=== PATIENT | female | born 1945 | race Caucasian/White ===

== ENCOUNTER → 2018-07-19 12:31 | Outpatient (CLI) | payer BC ==
[~2018-07-19 12:31] MED LIST: ASPIRIN EC81 M1 PO; CO Q-1030 MG PO; FLAGYL500 MG PO; LIVALO2 MG PO; NEOMYCIN SULFA500 MG PO; ZEBETA5 MG; ZEBETA5 MG PO; ZETIA10 MG PO
== END | disposition home or self-care (01) ==
LOC: D.CT 12:31
DX: R10.9 Unspecified abdominal pain (principal)

== ENCOUNTER → 2019-01-18 09:31 | Outpatient (CLI) | payer BC ==
[2015-02-13 09:14] VITALS: BMI 28.3
[2019-01-18 10:06] LABS: ALBUMIN 3.9 g/dL (3.4-5.0); BILIRUBIN - DIRECT 0.13 mg/dL (0.00-0.30); BILIRUBIN - INDIRECT 0.75 mg/dL (0.00-1.00); BILIRUBIN - TOTAL 0.88 mg/dL (0.2-1.3); PROTEIN - SERUM 7.5 g/dL (6.4-8.2)
== END | disposition home or self-care (01) ==
LOC: D.LAB 08:00 → D.US 10:00
PROVIDERS: ATTEND Internal Medicine Gastroenterology
DX: K76.0 Fatty (change of) liver, not elsewhere classified (principal)